=== PATIENT | female | born 1950 | race Caucasian/White ===

== ENCOUNTER 2023-05-05 15:48 | Emergency (ER) | payer MEDICARE ==
[~2023-05-05] VITALS: Ht 165.1 cm; Wt 69.9 kg
[2023-05-05] MEDS ORDERED: OXYCODONE HCL5 MG PO (16:18)
[2023-05-05] MEDS ORDERED: LEVOFLOXACIN500 MG PO (16:19)
[2023-05-05] MEDS ORDERED: GABAPENTIN100 MG PO (16:19)
[2023-05-05] MEDS ORDERED: SENNA LAXATIVE8.6 MG PO (16:20)
[2023-05-05] MEDS ORDERED: TRAZODONE HCL150 MG PO (16:20)
[2023-05-05 16:43] LABS: BASOPHILS 0.2 % (0-2); EOSINOPHILS 2.3 % (0-6); HEMATOCRIT 37.4 % (35.0-50.0); HEMOGLOBIN 12.1 g/dL (12.0-18.0); LYMPHOCYTES 31.4 % (24-44); MCH 28.9 (27-36); MCHC 32.4 g/dl (30-36); MCV 89.1 fl (81-99); MONOCYTES 5.6 % (0-12); NEUTROPHILS 60.5 % (39-80); PLATELET COUNT 54 K/uL (140-440); RDW 24.6 (10.5-15.0)
[2023-05-05 16:53] LABS: ALBUMIN 3.4 g/dL (3.4-5.0); ALBUMIN/GLOBULIN RATIO 0.94 (1.1-2.4); ANION GAP 11.3 (7-21); BILIRUBIN, TOTAL 0.4 ng/dL (0.2-1.0); BUN/CREATININE RATIO 14.08 (6.0-28.6); CALCIUM 8.6 mg/dL (8.5-10.1); CREATININE, SERUM 0.71 mg/dL (0.55-1.02); MAGNESIUM 1.7 mg/dL (1.8-2.4); POTASSIUM 4.3 mmol/L (3.5-5.1)
[2023-05-05 19:24] LABS: BILIRUBIN, URINE NEGATIVE (negative); BLOOD/HGB, URINE MODERATE (Negative); KETONE, URINE SMALL (Negative); LEUK ESTERASE, URINE NEGATIVE (negative); NITRITE, URINE NEGATIVE (negative)
[2023-05-05 19:30] LABS: BACTERIA, URINE RARE /hpf (negative); CASTS, URINE NONE SEEN \\lpf; COLLECTION TYPE, URINE CLEAN CATCH; CRYSTALS, URINE AMORPHOUS PHOSPH 1+ (0-1+); EPITHELIAL CELLS, URINE NONE SEEN /lpf (0-1+); REFLEX CULTURE, URINE No (No); WHITE BLOOD CELLS, URINE 0-1 /HPF (0-5)
[2023-05-05] MEDS ORDERED: ONDANSETRON ODT8 MG PO (19:36)
[2023-05-05 19:57] VITALS: BP 127/65
== END 2023-05-05 19:58 | disposition home or self-care (01) ==
LOC: ED 15:48
PROVIDERS: Emergency Medicine
DX: R10.11 Right upper quadrant pain (principal); C56.9 Malignant neoplasm of unspecified ovary; E11.9 Type 2 diabetes mellitus without complications; Z88.1 Allergy status to other antibiotic agents; Z88.2 Allergy status to sulfonamides; Z79.899 Other long term (current) drug therapy
CPT/HCPCS: 36415; 71045; 74177; 80053; 81001; 83690; 83735; 85025; 85060; 96361; 96375; 96376; 99284-25; A9270; J1170; J1790; J2405; J7030